=== PATIENT | female | born 1975 | race Caucasian/White ===

== ENCOUNTER 2017-08-16 09:08 | Emergency (ER) | payer MEDICAID, OTHER ==
[~2017-08-16] VITALS: Ht 154.9 cm; Wt 85.0 kg
[2017-08-16 09:10] VITALS: Ht 154.9 cm; Wt 85.0 kg
[2017-08-16] MEDS ORDERED: KETOROLAC 30 MG INJ IM STA (09:32)
[2017-08-16 09:45] LABS: URINE BLOOD (Dip) POC Trace-lysed (NEGATIVE)
--- NOTE | 2017-08-16 09:48 | ERD ---
ER Documentation Chief Complaint Date/Time DATE: 08/16/17 TIME: 09:44 Chief Complaint LOW BACK PAIN X 2 DAYS, DENIES INJURY HPI This a 42-year-old female who presents the emergency department today complaining of low back pain that started yesterday.States she has some left- sided pelvic pain as well. States she took Advil. States the pain is worse when she goes from sitting to standing and back down to sitting. Denies any fevers or chills, dysuria, loss of bowel or bladder control.Denies any vaginal bleeding. ROS All systems reviewed and are negative except as per history of present illness. Medications Home Meds Active Scripts Cyclobenzaprine Hcl* (Cyclobenzaprine Hcl*) 10 Mg Tablet, 10 MG PO QHS, #7 TAB Prov:EPHRAIM LYNN PA-C 08/16/17 Naproxen* (Naprosyn*) 500 Mg Tablet, 500 MG PO BID Y for PAIN AND/OR INFLAMMATION, #30 TAB Prov:EPHRAIM LYNN PA-C 08/16/17 Tramadol HCl (Tramadol HCl) 50 Mg Tablet, 50 MG PO Q4 Y for PAIN, #20 TAB Prov:EPHRAIM LYNN PA-C 08/16/17 Allergies Allergies: Coded Allergies: No Known Allergy (Unverified , 08/16/17) PMhx/Soc Medical and Surgical Hx: pt denies Medical Hx, pt denies Surgical Hx Hx Alcohol Use: No Hx Substance Use: No Hx Tobacco Use: No Smoking Status: Never smoker Physical Exam Vitals Vital Signs Date Time Temp Pulse Resp B/P Pulse Ox O2 Delivery O2 Flow Rate FiO2 08/16/17 09:10 98.6 86 20 109/69 99 Physical Exam Const: obese, NAD Head: Atraumatic Eyes: Normal Conjunctiva ENT: Normal External Ears, Nose and Mouth. Neck: Full range of motion..~ No meningismus. Resp: Clear to auscultation bilaterally Cardio: Regular rate and rhythm, no murmurs Abd: Soft, non tender, non distended. Normal bowel sounds. Left-sided pelvic pain. No tenderness at McBurney's. Skin: No petechiae or rashes Back: Sacral spine midline tenderness. No erythema or warmth. Nontender coccyx. Ext: No cyanosis, or edema Neur: Awake and alert Psych: Normal Mood and Affect Results 24 hrs Laboratory Tests Test 08/16/17 09:51 Bedside Urine pH (LAB) 5.5 Bedside Urine Protein (LAB) Negative Bedside Urine Glucose (UA) Negative Bedside Urine Ketones (LAB) Negative Bedside Urine Blood Trace-lysed Bedside Urine Nitrite (LAB) Negative Bedside Urine Leukocyte Esterase (L Trace Current Medications Medications (Trade) Dose Ordered Sig/Ale Route PRN Reason Start Time Stop Time Status Last Admin Dose Admin Ketorolac Tromethamine (Toradol) 30 mg ONCE STAT IM 08/16/17 09:32 08/16/17 09:33 DC 08/16/17 09:46 DIAGNOSTIC IMAGING REPORT Patient: LINUS ESPARZA : 1975 Age: 42 Sex: F MR #: [id number] DOS: 08/16/17 0000 Ordering MD: EPHRAIM LYNN PA-C Location: E/R Room/Bed: PROCEDURE: US Pelvis. CLINICAL INDICATION: Pelvic pain TECHNIQUE: Multiple sonographic images of the pelvis were obtained utilizing a transabdominal and endovaginal technique. The images were reviewed on a PACS workstation. COMPARISON: None available FINDINGS: Uterus: Normal in size, contour and echogenicity with several fibroids, the largest measuring 2.7 x 2.8 x 3.5 cm along the posterior uterine body . Size is estimated at 8.7 x 5.1 x 6.3 cm. Cervix: There are several Nabothian cyst within the cervix. There is a 9 x 8 mm hypoechoic mass within the lower cervix which may represent a cervical fibroid. Endometrium: Normal in thickness; 13 mm. Right ovary / adnexa: Normal in size estimated at 3.5 x 2.3 x 2.9 cm. No evidence for masses, normal blood flow on Doppler interrogation. Several follicles are present in the right ovary, the largest measuring 1.8 cm. Left ovary/adnexa: Normal in size estimated at 2.7 x 1.7 x 2.2 cm. No evidence for solid masses, normal blood flow on Doppler interrogation. Cul-de-sac: No evidence of free fluid. RPTAT: HSM IMPRESSION: 1. Heterogeneous uterus with several fibroids, the largest measuring 2.8 along the posterior uterine body. 2. 9 mm hypoechoic mass within the cervix, likely a cervical fibroid. 3. Several bilateral follicles are present within the ovaries .Leann Frias MD, Date Time Electronically viewed and signed by .Leann Frias MD, MD on 08/16/2017 11:41 .M/ CC: EPHRAIM LYNN PA-C Procedures/[facility] This 42-year-old female who presents emergency department today complaining of low back pain that started yesterday. Patient describes her pain in the sacrum area however is significantly above the level of the coccyx and I did palpate the coccyx and patient has no pain there and I have low suspicion for pilonidal cyst or abscess. Given that patient has only had back pain for a day do not feel that she requires imaging at this time. Low suspicion for acute fracture dislocation as there was no trauma. I did obtain a UA and pelvic ultrasound. UA is negative for infection test is negative pelvic US shows heterogeneous uterus with several fibroids. Largest measuring 2.8 cm along the posterior uterine body. There are several nabothian cysts within the cervix and a 9 x 8 mm hypoechoic mass within the lower cervix which may represent a cervical fibroid. There is no evidence for masses there is normal blood flow. There are several follicles present in the right ovary. There is normal blood flow to both ovaries and adnexa. There is no evidence of free fluid. Low suspicion for ectopic , to ovarian absent, ovarian torsion Patient is afebrile and otherwise well-appearing.She has no loss of bowel or bladder control. Low suspicion for cauda equina or abscess. Patient symptoms at this time consistent with back pain likely musculoskeletal and left-sided pelvic pain likely caused by fibroids. Patient was given Toradol here in the emergency department. I will give her a short course of tramadol, Naprosyn and Flexeril for home. 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 At this time the patient is stable for discharge and outpatient management. Patient should follow up with their PCP in the next 1-2 days. They may return to the emergency department sooner for any persistent or worsening of symptoms. Patient understood and agreed with the plan. Departure Diagnosis: Primary Impression: Back pain Back pain location: low back pain Chronicity: acute Back pain laterality: midline Sciatica presence: without sciatica Qualified Code: M54.5 - Acute midline low back pain without sciatica Additional Impression: Pelvic pain Condition: Fair EPHRAIM LYNN PA-C Aug 16, 2017 09:47
--- NOTE | 2017-08-16 11:41 | RADRPT ---
PROCEDURE: US Pelvis. CLINICAL INDICATION: Pelvic pain TECHNIQUE: Multiple sonographic images of the pelvis were obtained utilizing a transabdominal and endovaginal technique. The images were reviewed on a PACS workstation. COMPARISON: None available FINDINGS: Uterus: Normal in size, contour and echogenicity with several fibroids, the largest measuring 2.7 x 2.8 x 3.5 cm along the posterior uterine body . Size is estimated at 8.7 x 5.1 x 6.3 cm. Cervix: There are several Nabothian cyst within the cervix. There is a 9 x 8 mm hypoechoic mass with in the lower cervix which may represent a cervical fibroid. Endometrium: Normal in thickness; 13 mm. Right ovary / adnexa: Normal in size estimated at 3.5 x 2.3 x 2.9 cm. No evidence for masses, norm al blood flow on Doppler interrogation. Several follicles are present in the right ovary, the larges t measuring 1.8 cm. Left ovary/adnexa: Normal in size estimated at 2.7 x 1.7 x 2.2 cm. No evidence for solid masses, no rmal blood flow on Doppler interrogation. Cul-de-sac: No evidence of free fluid. RPTAT: HSM IMPRESSION: 1. Heterogeneous uterus with several fibroids, the largest measuring 2.8 along the posterior uterine body. 2. 9 mm hypoechoic mass within the cervix, likely a cervical fibroid. 3. Several bilateral follicles are present within the ovaries .Leann Frias MD, Date Time Electronically viewed and signed by .Leann Frias MD, MD on 08/16/2017 11:41 .M/
[2017-08-16] MEDS ORDERED: CYCL-319 PO (12:03)
[2017-08-16] MEDS ORDERED: TRAM50TA2 PO (12:03)
[2017-08-16] MEDS ORDERED: NAPR-260 PO (12:03)
== END 2017-08-16 12:30 | disposition home or self-care (01) ==
LOC: E/R 09:08
DX: M54.5 Low back pain (principal); R10.2 Pelvic and perineal pain
CPT/HCPCS: 76830; 76856; 81003; 96372; J1885; Z7502

== ENCOUNTER 2017-10-28 19:04 | Emergency (ER) | payer MEDICAID ==
[~2017-10-28] VITALS: Ht 157.5 cm; Wt 89.0 kg
[~2017-10-28 19:04] MED LIST: CYCL-319 PO; NAPR-260 PO; TRAM50TA2 PO
[2017-10-28 19:15] VITALS: Ht 157.5 cm; Wt 89.0 kg
--- NOTE | 2017-10-28 20:51 | ERD ---
ER Documentation Chief Complaint Chief Complaint painful urination since 1500 HPI This is a 42-year-old female who presents the emergency department today complaining of pain with urination for the past few hours. States she has not taken a medication for the pain. States she is currently on her menstrual cycle. Denies any fevers or chills or back pain, abdominal pain. ROS All systems reviewed and are negative except as per history of present illness. Medications Home Meds Active Scripts Ibuprofen* (Motrin*) 600 Mg Tab, 600 MG PO Q6, #30 TAB Prov:EPHRAIM LYNN PA-C 10/28/17 Cephalexin* (Keflex*) 500 Mg Capsule, 500 MG PO QID for 7 Days, CAP Prov:EPHRAIM LYNN PA-C 10/28/17 Cyclobenzaprine Hcl* (Cyclobenzaprine Hcl*) 10 Mg Tablet, 10 MG PO QHS, #7 TAB Prov:EPHRAIM LYNN PA-C 08/16/17 Naproxen* (Naprosyn*) 500 Mg Tablet, 500 MG PO BID Y for PAIN AND/OR INFLAMMATION, #30 TAB Prov:EPHRAIM LYNN PA-C 08/16/17 Tramadol HCl (Tramadol HCl) 50 Mg Tablet, 50 MG PO Q4 Y for PAIN, #20 TAB Prov:EPHRAIM LYNNC 08/16/17 Allergies Allergies: Coded Allergies: No Known Allergy (Unverified , 08/16/17) PMhx/Soc Hx Alcohol Use: No Hx Substance Use: No Hx Tobacco Use: No Physical Exam Vitals Vital Signs Date Time Temp Pulse Resp B/P Pulse Ox O2 Delivery O2 Flow Rate FiO2 10/28/17 19:15 98.9 109 18 124/81 99 Physical Exam Const: NAD Head: Atraumatic Eyes: Normal Conjunctiva ENT: Normal External Ears, Nose and Mouth. Neck: Full range of motion..~ No meningismus. Resp: Clear to auscultation bilaterally Cardio: Regular rate and rhythm, no murmurs Abd: Soft, suprapubic pain non distended. Normal bowel sounds. No tenderness at McBurney's Skin: No petechiae or rashes Back: No midline or flank tenderness Ext: No cyanosis, or edema Neur: Awake and alert Psych: Normal Mood and Affect Results 24 hrs Laboratory Tests Test 10/28/17 22:00 Urine Color RED Urine Clarity CLEAR Urine pH 6.0 Urine Specific Alexander 1.003 Urine Ketones NEGATIVEmg/dL Urine Nitrite NEGATIVEmg/dL Urine Bilirubin NEGATIVEmg/dL Urine Urobilinogen NEGATIVEmg/dL Urine Leukocyte Esterase 2+Enzo/ul Urine Microscopic RBC 27/HPF Urine Microscopic WBC 37/HPF Urine Bacteria FEW/HPF Urine Hemoglobin 3+mg/dL Urine Glucose NEGATIVEmg/dL Urine Total Protein NEGATIVEmg/dl Current Medications Medications (Trade) Dose Ordered Sig/Ale Route PRN Reason Start Time Stop Time Status Last Admin Dose Admin Ibuprofen (Motrin) 800 mg ONCE ONCE PO 10/28/17 21:00 10/28/17 21:01 DC 10/28/17 23:10 Cephalexin (Keflex) 500 mg ONCE ONCE PO 10/28/17 23:00 10/28/17 23:01 DC 10/28/17 23:10 Procedures/MDM This is a 42-year-old female who presents emergency department today complaining of burning and pain with urination that started this afternoon. Patient's physical exam showed superpubic tenderness and no other abdominal pain. Given patient's complaints I did obtain a UA UA is 2+ leukocyte esterase and 37 micro scopic white blood cells. There are 27 microscopic red blood cells. Patient is currently on her menstrual cycle. Symptoms at this time is consistent with urinary tract infection. Patient is afebrile and otherwise well-appearing. She has no flank pain and vomiting. Low suspicion for pyelonephritis. Patient was given Motrin here in the emergency department. She was requesting medication for her urinary tract infection here in the emergency department. She was given a first dose of Keflex. She will be given a prescription for Tylenol Motrin for home addition to Keflex. At this time the patient is stable for discharge and outpatient management. Patient should follow up with their PCP in the next 1-2 days. They may return to the emergency department sooner for any persistent or worsening of symptoms. Patient understood and agreed with the plan. Departure Diagnosis: Primary Impression: UTI (urinary tract infection) Urinary tract infection type: site unspecified Hematuria presence: with hematuria Qualified Code: N39.0 - Urinary tract infection with hematuria, site unspecified Condition: EPHRAIM Arnett PA-C Oct 28, 2017 20:51
[2017-10-28] MEDS ORDERED: IBUPROFEN 800 MG TAB PO ONE (21:00)
[2017-10-28 22:16] LABS: ADD UMIC YES; UR ASCORBIC ACID NEGATIVE (NEGATIVE); UR BACTERIA FEW /HPF (NONE SEEN); UR BILIRUBIN (Dip) NEGATIVE (NEGATIVE); UR BLOOD (Dip) 3+ mg/dL (NEGATIVE); UR CLARITY CLEAR (CLEAR); UR COLOR RED (YELLOW); UR GLUCOSE (Dip) NEGATIVE (NEGATIVE); UR KETONES (Dip) NEGATIVE (NEGATIVE); UR LEUKOCYTE ESTERASE (Dip) 2+ Leu/ul (NEGATIVE); UR NITRITE (Dip) NEGATIVE (NEGATIVE); UR RBC 27 /HPF (0-5); UR SPECIFIC GRAVITY (Dip) 1.003 (1.003-1.030); UR TOTAL PROTEIN (Dip) NEGATIVE (NEGATIVE); UR UROBILINOGEN (Dip) NEGATIVE (NEGATIVE)
[2017-10-28] MEDS ORDERED: IBUP-1542 PO (22:57)
[2017-10-28] MEDS ORDERED: CEPH-443 PO (22:57)
[2017-10-28] MEDS ORDERED: CEPHALEXIN 500 MG CAP PO ONE (23:00)
== END 2017-10-28 23:15 | disposition home or self-care (01) ==
LOC: FTE 19:04
DX: N39.0 Urinary tract infection, site not specified (principal)
CPT/HCPCS: 81001; Z7502; Z7610; 99283